=== PATIENT | male | born 1990 ===

== ENCOUNTER 2018-02-21 08:17 | Emergency (ER) | payer OTHER ==
--- NOTE | 2018-02-21 09:12 | ED ---
Upper Extremity Pain - HPI Summary HPI Summary: Right hand dominant pt presents w/ Rt shoulder pain x 1 week. Grdual onset - worse past few days - achey pain. Moving it makes it worse - resting in a supported position makes it better. Focal w/o radiating pain - denies numbness, tingling, weakness. 01/02. Tried smoking a blunt for pain control 1 hour ago - was helpful. 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 Overall healthy pt otherwise. - History of Current Complaint Chief Complaint: EDShouldDilan Stated Complaint: SHOULDER INJURY, Time Seen by Provider: 02/21/18 08:39 Hx Obtained From: Patient - Allergies/Home Medications Allergies/Adverse Reactions: Allergies Allergy/AdvReac Type Severity Reaction Status Date / Time Penicillins Allergy Rash Verified 02/21/18 08:31 Home Medications: Home Medications NK [No Home Medications Reported] 02/21/18 [History Confirmed 02/21/18] PMH/Surg Hx/FS Hx/Imm Hx Previously Healthy: Yes Endocrine/Hematology History: Denies: Hx Anticoagulant Therapy, Hx Blood Disorders, Hx Diabetes, Autoimmune Disease Cardiovascular History: Denies: Hx Hypertension Infectious Disease History: No Infectious Disease History: Denies: Traveled Outside the [place] in Last 30 Days - Family History Known Family History: Positive: Other - mom and bro of heroine OD - Social History Occupation: Employed Full-time Alcohol Use: Occasionally Substance Use Type: Reports: Marijuana Hx Tobacco Use: Yes Smoking Status (MU): Current Every Day Smoker Review of Systems Positive: no symptoms reported Positive: Arthralgia, Myalgia. Negative: Decreased ROM, Edema Skin: Negative Neurological: Negative Psychological: Normal All Other Systems Reviewed And Are Negative: Yes Physical Exam Triage Information Reviewed: Yes Vital Signs On Initial Exam: Initial Vitals Temp Pulse Resp BP Pulse Ox 98.5 F 91 18 106/73 97 02/21/18 08:27 02/21/18 08:27 02/21/18 08:27 02/21/18 08:27 02/21/18 08:27 Vital Signs Reviewed: Yes Appearance: Positive: Well-Appearing - pt shakes to greet provider with Right hand w/o difficulty, No Pain Distress, Well-Nourished Skin: Positive: Warm, Skin Color Reflects Adequate Perfusion, Dry - no erythema , no ecchymosis Head/Face: Positive: Normal Head/Face Inspection Eyes: Positive: EOMI ENT: Positive: Hearing grossly normal Respiratory/Lung Sounds: Positive: Breath Sounds Present Cardiovascular: Positive: Pulses are Symmetrical in both Upper and Lower Extremities Musculoskeletal: Positive: Strength/ROM Intact - 5/5 strength and FROM Rt shoulder; pain w/ adduction across chest and w/ internal rotation; (-) drop arm , (-) empty can, (-) Palacio; no gross deformity, no clicking Neurological: Positive: Normal, Sensory/Motor Intact, Alert, Oriented to Person Place, Time, CN Intact II-III Psychiatric: Positive: Normal Diagnostics - Vital Signs Vital Signs Temp Pulse Resp BP Pulse Ox 02/21/18 08:27 98.5 F 91 18 106/73 97 - Laboratory Lab Statement: Any lab studies that have been ordered have been reviewed, and results considered in the medical decision making process. Course/Dx - Course Course Of Treatment: XR: no fx, no dislocation, no effusion - Diagnoses Provider Diagnoses: Shoulder pain, right Discharge - Sign-Out/Discharge Documenting (check all that apply): Patient Departure - Discharge Plan Condition: Stable Disposition: HOME Patient Education Materials: Tendinitis (ED) Forms: *Work Release Referrals: [facility] [Outside] Additional Instructions: Rest, ice, perform gentle stretches to maintain range of motion and strength You may take ibuprofen 600 mg every 6 hours with food as needed for pain. He may take acetaminophen extra strength as needed for breakthrough pain. Follow-up with PCP if pain persists beyond 1-2 weeks. [facility] is a primary care office here in the hospital. Please call for appointment. *If you develop numbness, tingling, weakness, coolness of your extremity, return to the emergency department. - Billing Disposition and Condition Condition: STABLE Disposition: Home
--- NOTE | 2018-02-21 09:42 | RAD ---
INDICATION: Right shoulder pain. TECHNIQUE: 4 views of the right shoulder were obtained. FINDINGS: The bones are in normal alignment. No fracture is seen. Joint spaces appear maintained. IMPRESSION: NEGATIVE EXAM.
[2018-02-21 09:57] VITALS: BP 129/71
== END 2018-02-21 09:56 | disposition home or self-care (01) ==
LOC: ED 08:17
DX: M25.511 Pain in right shoulder (principal); Z88.0 Allergy status to penicillin; F17.200 Nicotine dependence, unspecified, uncomplicated
CPT/HCPCS: 99282

== ENCOUNTER 2019-09-02 22:16 | Emergency (ER) | payer MEDICAID, OTHER ==
[2019-09-03 00:07] LABS: Influenza A Molecular POSITIVE (Negative)
[2019-09-03] MEDS ORDERED: Oseltamivir CAP* 75 MG CAP PO ONE (00:43)
[2019-09-03] MEDS ORDERED: Ibuprofen TAB* 800 MG PO ONE (00:44)
--- NOTE | 2019-09-03 00:46 | ED ---
Influenza-Like Illness - HPI Summary HPI Summary: 29 year old male presents with flulike symptoms in past 2 days. He admits to a cough. He admits to Muscle aches. States he felt febrile. he denies any chest pressures or shortness of breath. No abdominal pain. No nausea vomiting. Denies a sore throat. Admits to sinus congestion. Has not taken anything for his symptoms. Has no medical conditions. Does smoke. No recent travel. - History of Current Complaint Chief Complaint: EDUpperRespComplaint Time Seen by Provider: 09/03/19 00:35 - Allergy/Home Medications Allergies/Adverse Reactions: Allergies Allergy/AdvReac Type Severity Reaction Status Date / Time Penicillins Allergy Rash Verified 09/02/19 22:32 Home Medications: Home Medications Oseltamivir CAP* [Tamiflu CAP*] 75 mg PO BID #10 cap 09/03/19 [Rx] PMH/Surg Hx/FS Hx/Imm Hx Endocrine/Hematology History: Denies: Hx Anticoagulant Therapy, Hx Blood Disorders, Hx Diabetes Cardiovascular History: Denies: Hx Hypertension Infectious Disease History: No Infectious Disease History: Denies: Traveled Outside the [place] in Last 30 Days - Family History Known Family History: Positive: Other - mom and bro of heroine OD - Social History Alcohol Use: Occasionally Substance Use Type: Reports: Marijuana Hx Tobacco Use: Yes Smoking Status (MU): Current Every Day Smoker Review of Systems Positive: Fever Negative: Chest Pain Positive: Cough. Negative: Shortness Of Breath Positive: Myalgia All Other Systems Reviewed And Are Negative: Yes Physical Exam Triage Information Reviewed: Yes Vital Signs On Initial Exam: Initial Vitals Temp Pulse Resp BP Pulse Ox 99.7 F 90 15 110/75 97 09/02/19 22:31 09/02/19 22:31 09/02/19 22:31 09/02/19 22:31 09/02/19 22:31 Vital Signs Reviewed: Yes Appearance: Positive: Well-Appearing Skin: Positive: Warm, Dry Head/Face: Positive: Normal Head/Face Inspection Eyes: Positive: Normal, EOMI, PAUL, Conjunctiva Clear ENT: Positive: Normal ENT inspection, Pharynx normal, TMs normal Respiratory/Lung Sounds: Positive: Clear to Auscultation, Breath Sounds Present Cardiovascular: Positive: Normal, RRR Abdomen Description: Positive: Nontender, Soft Bowel Sounds: Positive: Present Musculoskeletal: Positive: Normal Neurological: Positive: Normal Psychiatric: Positive: Normal Procedures - Sedation Patient Received Moderate/Deep Sedation with Procedure: No Diagnostics - Vital Signs Vital Signs Temp Pulse Resp BP Pulse Ox 09/02/19 22:31 99.7 F 90 15 110/75 97 - Laboratory Lab Results: Lab Results 09/02/19 Range/Units 23:45 Influenza A (Rapid) Positive H (Negative) Influenza B (Rapid) Not Reportable Lab Statement: Any lab studies that have been ordered have been reviewed, and results considered in the medical decision making process. Flu Symptom Course/Dx - Course Course Of Treatment: 29 year old male presents with flulike symptoms in past 2 days. He admits to a cough. He admits to Muscle aches. States he felt febrile. he denies any chest pressures or shortness of breath. No abdominal pain. No nausea vomiting. Denies a sore throat. Admits to sinus congestion. Has not taken anything for his symptoms. Has no medical conditions. Does smoke. No recent travel. On exam lungs CTA. Flu Ae positive. We'll treat with Tamiflu. Patient understands and agrees with plan. - Diagnoses Differential Diagnosis/HQI/PQRI: Positive: Influenza, Pneumonia, Upper Respiratory Infection Provider Diagnoses: Influenza Discharge ED - Sign-Out/Discharge Documenting (check all that apply): Patient Departure - Discharge Plan Condition: Good Disposition: HOME Prescriptions: Oseltamivir CAP* [Tamiflu CAP*] 75 mg PO BID #10 cap Patient Education Materials: Influenza (ED) Forms: *Work Release Referrals: No Primary Care Phys,NOPCP [Primary Care Provider] - Additional Instructions: Take Tamiflu twice for 5 days first dose given in ED Take Tylenol and ibuprofen for muscle aches and fever every 6 hours Saline rinse can be used multiple times a day for nasal congestion Drink plenty of fluids Follow up with primary within 5 days Return to ED if develop any new or worsening symptoms - Billing Disposition and Condition Condition: GOOD Disposition: Home
[2019-09-03 01:10] VITALS: BP 100/75
== END 2019-09-03 01:08 | disposition home or self-care (01) ==
LOC: ED 22:16
DX: J11.1 Influenza due to unidentified influenza virus with other respiratory manifestations (principal); F17.210 Nicotine dependence, cigarettes, uncomplicated; Z88.0 Allergy status to penicillin
CPT/HCPCS: 99282; A9270-GY